=== PATIENT | male | born 1985 | race Two or more races ===

== ENCOUNTER 2023-12-11 09:36 | Emergency (ER) | payer MEDICAID ==
[~2023-12-11] VITALS: Ht 170.2 cm; Wt 89.5 kg
[2023-12-11 10:52] VITALS: BP 152/94; PULSE 101; RESP 16; TEMP 98; O2SAT 98
[2023-12-11] MEDS ORDERED: CEPH500C PO (12:06)
[2023-12-11] MEDS ORDERED: MUPI2CRE17 EX (12:06)
== END 2023-12-11 12:23 | disposition home or self-care (01) ==
LOC: ER 09:36
DX: R21 Rash and other nonspecific skin eruption (principal); Z79.899 Other long term (current) drug therapy